=== PATIENT | male | born 1995 | race Caucasian/White ===

== ENCOUNTER 2020-10-21 12:21 | Emergency (ER) | payer OTHER ==
[~2020-10-21] VITALS: Ht 162.6 cm; Wt 63.6 kg
[2020-10-21 13:04] LABS: BASO % 0.5 % (0.0-1.0); EOS # 0.3 10^3/uL (0.0-0.5); HEMATOCRIT 43.5 % (42.0-52.0); HEMOGLOBIN 15.3 g/dl (13.5-17.5); LYMPH # 1.2 10^3/uL (1.5-5.0); LYMPH % 14.2 % (24.0-44.0); MEAN CORPUSCULAR HGB CONC 35.2 g/dl (32.0-36.5); MEAN CORPUSCULAR VOLUME 88.2 fl (80.0-96.0); MONO # 0.8 10^3/uL (0.0-0.8); MONO % 8.7 % (2.0-8.0); NEUTROPHILS # 6.2 10^3/uL (1.5-8.5); NEUTROPHILS % 72.4 % (36.0-66.0); PLATELET COUNT, AUTOMATED 207 10^3/uL (150-450); RED BLOOD COUNT 4.93 10^6/uL (4.30-6.10); WHITE BLOOD COUNT 8.6 10^3/uL (4.0-10.0)
[2020-10-21 13:25] LABS: BLOOD UREA NITROGEN 12 MG/DL (7-18); CALCIUM LEVEL 9.8 MG/DL (8.5-10.1); CARBON DIOXIDE LEVEL 28 MEQ/L (21-32); CHLORIDE LEVEL 105 MEQ/L (98-107); CK-MB VALUE MASS < 1.0 NG/ML (<3.6); CPK CREATINE PHOSPHOKINASE 101 U/L (39-308); CREATININE FOR GFR 0.88 MG/DL (0.70-1.30); GLOMERULAR FILTRATION RATE > 60.0 (>60); GLUCOSE, FASTING 95 MG/DL (70-100); MB/CK RELATIVE INDEX 0.99 (< OR =4); POTASSIUM SERUM 4.2 MEQ/L (3.5-5.1); SODIUM LEVEL 140 MEQ/L (136-145); TROPONIN I < 0.02 NG/ML (< 0.10)
--- NOTE | 2020-10-21 13:32 | REP ---
INDICATION: cp COMPARISON: None. TECHNIQUE: Portable AP view of the chest FINDINGS: The mediastinum and cardiac silhouette are within normal limits for portable technique. The lung beckham are clear without acute consolidation, effusion, or pneumothorax. Skeletal structures are intact. Loop recorder overlies the left lower lung zone. IMPRESSION: No acute cardiopulmonary process appreciated. <Electronically signed by Delfino Castle > 10/21/20 [id number]
[2020-10-21] MEDS ORDERED: CORE3.12 PO (14:01)
[2020-10-21 17:19] LABS: CK-MB VALUE MASS < 1.0 NG/ML (<3.6); CPK CREATINE PHOSPHOKINASE 87 U/L (39-308); MB/CK RELATIVE INDEX 1.15 (< OR =4); TROPONIN I < 0.02 NG/ML (< 0.10)
[2020-10-21 17:35] VITALS: BP 139/81
--- NOTE | 2020-10-22 16:38 | ECGEPIP ---
[facility] - ED Test Date: 2020-10-21 Pat Name: JOVITA DELEON Department: Room: - Gender: Male Enrolled Nurse: : 1995 Requested By: Lizzie Jacobo Order Number: [id number] Reading MD: Aashish Sood Measurements Intervals [place] Rate: 74 P: 17 NE: 126 QRS: 45 QRSD: 92 T: 26 QT: 364 QTc: 404 Interpretive Statements Normal sinus rhythm with sinus arrhythmia Comparison tracing not on file Electronically Signed on 10-22-2020 16:37:56 EDT by Aashish Sood
--- NOTE | 2020-10-22 16:46 | ECGEPIP ---
[facility] - ED Test Date: 2020-10-21 Pat Name: JOVITA DELEON Department: Room: - Gender: Male Household Assistant: : 1995 Requested By: ADNE Gomez PA-C Order Number: [id number] Reading MD: Aashish Sood Measurements Intervals [place] Rate: 68 P: 39 CO: 130 QRS: 35 QRSD: 90 T: 27 QT: 374 QTc: 397 Interpretive Statements Normal sinus rhythm with sinus arrhythmia Similar to tracing done 12:45 on same date Electronically Signed on 10-22-2020 16:45:45 EDT by Aashish Sood
== END 2020-10-21 17:57 | disposition home or self-care (01) ==
LOC: M ED 12:21 → EDBD 12:21 → M ED 17:57
DX: R07.89 Other chest pain (principal); I10 Essential (primary) hypertension; K21.9 Gastro-esophageal reflux disease without esophagitis; Z79.899 Other long term (current) drug therapy; Z88.0 Allergy status to penicillin

== ENCOUNTER → 2021-05-11 | Outpatient (CLI) | payer OTHER ==
[~2021-05-11] MED LIST: CORE3.12 PO
== END ==
LOC: M CARPUL 09:18
DX: R00.2 Palpitations (principal)